=== PATIENT | male | born 1965 | race Caucasian/White ===

== ENCOUNTER → 2018-03-17 03:48 | Outpatient (CLI) | payer OTHER, SELFPAY ==
[2018-03-17 08:25] LABS: ALT 31 U/L (12-78); AST 23 U/L (15-37); Albumin 3.6 g/dL (3.4-5.0); Alkaline Phosphatase 77 U/L (46-116); Anion Gap 9.8 mmol/L (3-11); BUN 12 mg/dL (7-18); Bilirubin, Total 0.7 mg/dL (0.2-1.0); CO2 27.2 mmol/L (21.0-32.0); CREATININE 1.17 mg/dL (0.70-1.30); Calcium 8.8 mg/dL (8.5-10.1); Chloride 104 mmol/L (98-107); Cholesterol 204 mg/dL (50-200); Glucose 116 mg/dL (70-100); HDL Cholesterol 32 mg/dL (40-60); LDL CHOLESTEROL 148 mg/dL (<100); Potassium 4.4 mmol/L (3.5-5.1); Sodium 141 mmol/L (136-145); Total Protein 7.4 g/dL (6.4-8.2); Triglyceride 182 mg/dL (30-150)
== END ==
PROVIDERS: PCP Nurse Practitioner Gerontology; Visit Provider Family Medicine
DX: Z00.00 Encounter for general adult medical examination without abnormal findings (principal); E78.5 Hyperlipidemia, unspecified; F17.200 Nicotine dependence, unspecified, uncomplicated; I10 Essential (primary) hypertension
CPT/HCPCS: 36415; 80053; 80061; 83721

== ENCOUNTER 2018-05-31 14:26 | Outpatient (CLI) | payer OTHER, SELFPAY ==
--- NOTE | 2018-05-31 15:26 | DI.RAD_ITS ---
SYMPTOMS/DIAGNOSIS: LEFT HEEL PAIN, M79.672 EXAMINATION OF THE LEFT HEEL: Lateral and Artis projections of the heel were obtained. A prominent calcaneal spur is evident and there is some spurring at the insertion of the Achilles on the calcaneus. There is some soft tissue prominence over the heel without evidence of a localized mass. There is no evidence of a foreign body or gas in the soft tissues. These findings to be correlated with the patient's clinical status.
== END 2018-05-31 14:46 ==
PROVIDERS: PCP Nurse Practitioner Gerontology; Visit Provider Family Medicine
DX: M79.672 Pain in left foot (principal); M77.32 Calcaneal spur, left foot; M79.89 Other specified soft tissue disorders
CPT/HCPCS: 73650

== ENCOUNTER 2019-03-21 00:10 | Outpatient (CLI) | payer OTHER, SELFPAY ==
[2019-03-21 08:02] LABS: HCT 39.2 % (40.0-50.0); HGB 13.7 g/dL (13.5-17.5); Mean Corp. HGB Concentration 34.9 g/dL (32.0-36.0); Mean Corpuscular Hemoglobin 32.6 pg (27.0-33.0); Mean Corpuscular Volume 93.3 fL (80-95); Mean Platelet Volume 10.1 fL (8.0-11.0); Platelet Count 235 x1000/uL (130-400); RBC Distribution Width 12.5 % (11.8-14.1); White Blood Cell Count 7.46 k/cumm (4.4-10.8)
[2019-03-21 08:53] LABS: Hemoglobin A1C 6.2 % (4.5-6.2)
[2019-03-21 09:49] LABS: AST 17 U/L (15-37); Albumin 3.6 g/dL (3.4-5.0); Alkaline Phosphatase 87 U/L (46-116); Anion Gap 10.1 mmol/L (3-11); BUN 17 mg/dL (7-18); Bilirubin, Total 0.7 mg/dL (0.2-1.0); CO2 26.9 mmol/L (21.0-32.0); CREATININE 1.23 mg/dL (0.70-1.30); Calcium 9.1 mg/dL (8.5-10.1); Calculated LDL 102 mg/dL; Chloride 103 mmol/L (98-107); Cholesterol 164 mg/dL (50-200); Glucose 119 mg/dL (70-100); HDL Cholesterol 41 mg/dL (40-60); Potassium 4.7 mmol/L (3.5-5.1); Sodium 140 mmol/L (136-145); Total Protein 7.7 g/dL (6.4-8.2); Triglyceride 105 mg/dL (30-150)
[2019-03-21 09:50] LABS: ALT 29 U/L (12-78)
== END 2019-03-21 00:30 ==
PROVIDERS: PCP Family Medicine; Visit Provider Family Medicine
DX: E78.5 Hyperlipidemia, unspecified (principal); I10 Essential (primary) hypertension; Z82.49 Family history of ischemic heart disease and other diseases of the circulatory system; R73.03 Prediabetes; Z83.3 Family history of diabetes mellitus
CPT/HCPCS: 36415; 80053; 80061; 83721; 85027; 83036

== ENCOUNTER 2019-04-12 06:48 | Emergency (ER) | payer OTHER, SELFPAY ==
[2019-04-12 06:53] VITALS: BP 155/87; PULSE 74; RESP 16; TEMP 36.5; O2SAT 99
--- NOTE | 2019-04-12 07:06 | ED.GENADUL_ITS ---
Discharge Plan Disposition Patient Disposition: OTHER Condition: Good Discharge Details Chief Complaint: EyeProblem Clinical Impression: Foreign body in eye, Corneal rust ring Primary Care Provider: Renzo Sierra ED Provider: Polo Mejia [place] Meds and New Rx's Prescriptions: Continued aspirin [Adult Aspirin Regimen] 81 mg tablet,delayed release (DR/EC) 81 mg PO DAILY RF: 0 coenzyme Q10 [CoQ-10] 100 mg capsule 100 mg PO DAILY RF: 0 Atorvastatin Calcium 20 MG tablet 20 mg PO DAILY Qty: 90 RF: 3 lisinopril 10 mg tablet 10 mg PO DAILY Qty: 90 RF: 3 sildenafil [Viagra] 100 mg tablet 100 mg PO DAILY PRN (Reason: sexual activity) Qty: 30 RF: 5 Discharge Instructions Additional Instructions: They will see you at [facility] at 8 AM this morning. Referrals: Replaced By [facility] [Outside] Medical Decision Making Under slit lamp exam, patient noted to have metallic foreign body with large rust ring the right eye at about the 8 o'clock position with the iris and pupil meet. It is been present for 2 days. Case discussed with Dr. Fay, they are able to see the patient at 8 AM when the office opens. Patient discharged from ED to go directly to [facility]. HPI General Mode of arrival: ambulatory . Date/Time Provider Initiated Documentation: 04/12/19 06:59 . Limitations to Documentation: no limitations . Information obtained by: patient . HPI Narrative: Patient presents to ED with right eye pain and redness. 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 He felt something in his eye for 2 days now. He irrigated it out. He thought it would just come out but it has become more painful and red. He was unable to sleep last night. He has no visual change. He has no drainage. He presents now for evaluation. Related Data Home Medications Medication Instructions Recorded Confirmed aspirin 81 mg tablet,delayed 81 mg PO DAILY 05/30/18 04/12/19 release coenzyme Q10 100 mg capsule 100 mg PO DAILY 05/30/18 04/12/19 lisinopril 10 mg tablet 10 mg PO DAILY #90 tab-cap 02/22/19 04/12/19 sildenafil 100 mg tablet 100 mg PO DAILY PRN #30 tab 09/03/19 09/12/19 Previous Rx's Medication Instructions Recorded lisinopril 10 mg tablet 10 mg PO DAILY #90 tab-cap 02/22/19 sildenafil 100 mg tablet 100 mg PO DAILY PRN #30 tab 04/03/19 Allergies Allergy/AdvReac Type Severity Reaction Status Date / Time codeine AdvReac Intermediate Visual Unverified 04/12/19 06:55 Disturbances General Stated Complaint: EyeProblem LAMIN: 4 Review of Systems Eyes Eyes: Reports eye pain and Reports photophobia PFSH Medical History Essential hypertension (Chronic 01/05/16) Hyperlipidemia (Chronic 03/21/17) Surgical History Colonoscopy - IV Sedation (08/11/16) 4 polyps, rectum biopsy. Fragments of sessile serrated adnmoma, fragment of tubular adenoma, hyperpllastic polyp x2 tib/fib fx (~1975) Family History Mother Essential hypertension Father Essential hypertension Heart disease Neoplasm LUNG/MET TO BRAIN Sister No problems noted. Brother Diabetes Essential hypertension CHILDREN Udda-Pbwbw-Eobxjxj disease SON AGE 7 ONSET Premature DAUGHTER- Aprox. 2 hrs after Grandfather Non-Hodgkin lymphoma Grandfather Neoplasm Grandmother No problems noted. Grandmother Neoplasm Social History Smoking/Tobacco Use Status: Former Tobacco Use Alcohol Intake: never Drug use: Never Substance use type: does not use Household members: other Details: 5 current occupation: MAINTENANCE Pets and animals: Yes Pets and animals: cat(s) and dog(s) Frequency: does not exercise Helen/Zoroastrian: Mormon Seatbelt use: always Do you feel safe in your relationship?: Yes Exam Const General: cooperative and no acute distress Orientation: alert and oriented x3 HENMT Head: normocephalic and atraumatic Eyes Periorbital: periorbital findings normal Eyelids: eyelids normal Conjunctivae: conjunctival abnormality right conjunctival injection Cornea: corneas abnormal on the right foreign body metallic and with rust ring present Pupils: PERRL EOM: EOM intact bilaterally Course Vital Signs Vital signs: Vital Signs Temperature 97.7 F 04/12/19 06:53 Pulse 74 04/12/19 06:53 Respiratory Rate 16 04/12/19 06:53 Blood Pressure 155/87 H 04/12/19 06:53 Pulse Oximetry 99 04/12/19 06:53 Temperature 97.7 F 04/12/19 06:53 Temperature Source Skin 04/12/19 06:53 Pulse 74 04/12/19 06:53 Respiratory Rate 16 04/12/19 06:53 Respiratory Effort Non-Labored 04/12/19 06:53 Blood Pressure 155/87 H 04/12/19 06:53 Blood Pressure Position Sitting 04/12/19 06:53 Pulse Oximetry 99 04/12/19 06:53 Oxygen Delivery Method Room Air 04/12/19 06:53 Oxygen Flow Rate 0 04/12/19 06:53 Pain Level 5 04/12/19 06:53
== END 2019-04-12 07:25 | disposition other institution (70) ==
PROVIDERS: Emergency Provider Emergency Medicine; PCP Family Medicine
DX: T15.01XA Foreign body in cornea, right eye, initial encounter (principal); X58.XXXA Exposure to other specified factors, initial encounter; Y99.0 Civilian activity done for income or pay; I10 Essential (primary) hypertension
CPT/HCPCS: 99283

== ENCOUNTER 2019-11-05 07:15 | Outpatient (REF) | payer OTHER, SELFPAY | END 2019-11-05 07:35 | LOC: LBN 07:15 | PROVIDERS: PCP Family Medicine; Visit Provider Family Medicine | DX: R19.7 Diarrhea, unspecified (principal) | CPT/HCPCS: 87177; 87324 ==

== ENCOUNTER 2021-01-08 02:44 | Outpatient (CLI) | payer OTHER, SELFPAY ==
[2021-01-08 11:32] LABS: Hemoglobin A1C 9.1 % (<5.7)
[2021-01-08 11:46] LABS: Calculated LDL 162 mg/dL (<100); Cholesterol 223 mg/dL (<200); HDL Cholesterol 34 mg/dL (40-60); Triglyceride 139 mg/dL (<150)
== END 2021-01-08 02:45 | disposition home or self-care (01) ==
LOC: LOS 02:45
PROVIDERS: PCP Nurse Practitioner Family; Visit Provider Nurse Practitioner Family
DX: Z13.1 Encounter for screening for diabetes mellitus (principal); E78.5 Hyperlipidemia, unspecified; Z12.5 Encounter for screening for malignant neoplasm of prostate
CPT/HCPCS: 36415; 80061; 83036; 84154

== ENCOUNTER 2021-01-14 07:54 | Outpatient (CLI) | payer OTHER, SELFPAY ==
--- NOTE | 2021-01-14 14:00 | DI.RAD_ITS ---
Exam(s) XR SHOULDER RT COMPLETE 2+V EXAM: XR SHOULDER RT COMPLETE 2+V CLINICAL HISTORY: right shoulder pain. TECHNIQUE: 2D digital imaging was performed. COMPARISON: No exams were available for comparison FINDINGS: There is no evidence of fracture or dislocation. There is a 2-3 millimeter calcific density seen ant eriorly on the axial view adjacent to the greater tuberosity. There are minimal degenerative changes . No significant osseous lesions. IMPRESSION: DATA REPOSITORY: RADIATION DOSE DELIVERED:
== END 2021-01-14 07:55 | disposition home or self-care (01) ==
LOC: DIORS 01-15 07:54
PROVIDERS: PCP Nurse Practitioner Family; Referring Provider Nurse Practitioner Family; Visit Provider Student in an Organized Health Care Education/Training Program
DX: M25.511 Pain in right shoulder (principal)
CPT/HCPCS: 73030

== ENCOUNTER 2021-02-12 03:34 | Outpatient (CLI) | payer OTHER, SELFPAY ==
[2021-02-12 16:30] LABS: ALT 26 U/L (16-63); AST 17 U/L (15-37); Albumin 3.7 g/dL (3.4-5.0); Alkaline Phosphatase 83 U/L (46-116); BUN 15 mg/dL (7-18); Bilirubin, Total 0.5 mg/dL (0.2-1.0); CREATININE 1.4 mg/dL (0.70-1.30); Calcium 9.1 mg/dL (8.5-10.1); Chloride 105 mmol/L (98-107); Estimated GFR 52.62 (mL/min/1.73m2); Glucose 142 mg/dL (74-106); Potassium 3.9 mmol/L (3.5-5.1); Sodium 140 mmol/L (136-145); Total Protein 7.3 g/dL (6.4-8.2)
== END 2021-02-12 03:35 | disposition home or self-care (01) ==
LOC: LBO 03:34
PROVIDERS: PCP Nurse Practitioner Family; Visit Provider Nurse Practitioner Family
DX: I10 Essential (primary) hypertension (principal)
CPT/HCPCS: 36415; 80053

== ENCOUNTER 2022-05-28 16:49 | Outpatient (REF) | payer OTHER, SELFPAY ==
--- NOTE | 2022-05-28 14:50 | SKI_PTH ---
PATIENT: Tray Luu LOC: [facility] U#:[id number] AGE/SX: 57/M ROOM: RE05/28/[address]: Maurilio Linder DO : 1965 BED: DIS: 05/28/2022 SPEC #: [id number] RECD: 05/31/22 12:30 STATUS: JESSICA REQ #: [id number] ZOLTAN: 05/28/22 14:[address]: Maurilio Linder DEPT: Surgical Specimen RECD BY: Linda Castro ENTERED: 05/31/22 12:30 SP TYPE: SKI OTHR DR: Beto Damon, HARBOR BOAT PILOT Tissues: 1 - SKIN BIOPSY(SHAVE/PUNCH) Procedures: SKIN LEVEL 4 Comments: [id number]
== END 2022-05-28 16:50 | disposition home or self-care (01) ==
LOC: LBN 16:49
PROVIDERS: PCP Nurse Practitioner Family; Visit Provider Otolaryngology Otolaryngology/Facial Plastic Surgery
DX: L43.8 Other lichen planus (principal)
CPT/HCPCS: 88305

== ENCOUNTER 2022-10-29 01:41 | Outpatient (CLI) | payer OTHER, SELFPAY ==
[2022-10-29 10:28] LABS: CREATININE 1.3 mg/dL (0.70-1.30); Calculated LDL 148 mg/dL (<100); Cholesterol 220 mg/dL (<200); Estimated GFR 64.07 (mL/min/1.73m2); HDL Cholesterol 41 mg/dL (40-60); Triglyceride 159 mg/dL (<150)
== END 2022-10-29 01:42 | disposition home or self-care (01) ==
LOC: LOS 01:41
PROVIDERS: PCP Nurse Practitioner Family; Referring Provider Nurse Practitioner Family; Visit Provider Nurse Practitioner Family
DX: I10 Essential (primary) hypertension (principal); E78.5 Hyperlipidemia, unspecified
CPT/HCPCS: 36415; 80061; 82565; 84132

== ENCOUNTER 2025-01-02 02:40 | Outpatient (CLI) | payer OTHER, SELFPAY ==
[2025-01-02 12:27] LABS: Anion Gap 5.8 mmol/L (3-11); BUN 9 mg/dL (7-18); CO2 29.2 mmol/L (21.0-32.0); CREATININE 1.2 mg/dL (0.70-1.30); Calcium 9.1 mg/dL (8.5-10.1); Calculated LDL 79 mg/dL (<100); Chloride 103 mmol/L (98-107); Cholesterol 143 mg/dL (<200); Estimated GFR 69.66 (mL/min/1.73m2); Glucose 112 mg/dL (74-106); HDL Cholesterol 49 mg/dL (>or=40); Potassium 3.9 mmol/L (3.5-5.1); Sodium 138 mmol/L (136-145); Triglyceride 77 mg/dL (<150)
[2025-01-02 18:17] LABS: PSA, Screening 2.9 ng/mL (<=3.5)
== END 2025-01-02 02:41 | disposition home or self-care (01) ==
LOC: LOS 02:40
PROVIDERS: PCP Nurse Practitioner Family; Visit Provider Nurse Practitioner Family
DX: I10 Essential (primary) hypertension (principal); Z13.220 Encounter for screening for lipoid disorders; Z12.5 Encounter for screening for malignant neoplasm of prostate
CPT/HCPCS: 36415; 80048; 80061; 84153

== ENCOUNTER 2025-05-31 06:52 | Day surgery (SDC) | payer OTHER, SELFPAY ==
--- NOTE | 2025-05-30 17:03 | W.PM.DSUDISC ---
Date of service: 05/31/25 Discharge Plan Disposition Patient Disposition: Home Condition: Good Discharge Details Reason For Visit: Screening colonoscopy Attending Provider: Lonny King Primary Care Provider: Beto Damon Home Meds and New Rx's Prescriptions: Continued aspirin [Adult Aspirin Regimen] 81 mg tablet,delayed release (DR/EC) 81 mg PO DAILY (DME) blood-glucose meter [Advanced Glucose Meter] Misc See Rx Instructions .ROUTE .MEDSUPPLY Qty: 1 0RF Rx Instructions: Twice daily (DME) lancets [BD Ultra Fine Lancets] 33 gauge misc See Rx Instructions .ROUTE .MEDSUPPLY Qty: 100 0RF Rx Instructions: Twice daily lisinopril 10 mg tablet 10 mg PO DAILY Qty: 90 3RF (DME) Advanced Gluc Meter Test Strip Strip See Rx Instructions .ROUTE .MEDSUPPLY Qty: 100 3RF Rx Instructions: Twice daily sildenafil [Viagra] 100 mg tablet 100 mg PO DAILY PRN (Reason: sexual activity) Qty: 30 5RF Rx Instructions: administer 30 minutes to 4 hours before activity semaglutide 2 mg/dose (8 mg/3 mL) pen injector 2 mg subcut QWEEK Qty: 9 3RF atorvastatin 40 mg tablet 40 mg PO QHS Qty: 90 3RF Discharge Instructions Instructions: Colon polyps Additional Instructions: Tray was good meeting you today. I hope you are comfortable through the procedure. I did find, removed a total of 6 polyps today. All of these are quite small, none of them have any features that are particularly worrisome. I will send these all to the pathologist for them to review. Once I know the nature of the polyps, the office will be in touch with recommendations for your next colonoscopy. If you need anything or have any questions, please do not hesitate to call. 1. If tolerated, consume a soft, low fiber diet for 1-2 days. [address] Do not drive, drink alcohol, operate machinery, make critical decisions, or do activities that require coordination or balance for 24 hours. 3. Because air was put into your colon during the procedure, expelling air from your rectum (passing gas or farting) is normal. 4. You may not have a bowel movement for 1-3 days because of the colonoscopy prep. This is normal. 5. Go directly to the emergency room if you notice any of the following: Develop chills (warm to touch), or if you have a thermometer and your temperature is above 101 Difficulty breathing or difficultly swallowing Persistent vomiting Severe abdominal pain, other than gas cramps Severe chest pain Black, tarry stools Any bleeding – exceeding one tablespoon 6. Call your physician if the site where your intravenous was started becomes red, swollen, painful, and warm to touch. 7. Your physician has reviewed your pre-procedure medications. Please continue to take those medications as previously ordered. You will be given specific information/education regarding any changes to your medications before leaving. Stand Alone Forms: Anesthesia Discharge InstTimur Silva (DSU) Activity:: Activity as Tolerated Diet:: As Tolerated Discharge Orders Discharge Orders: Discharge Order (Routine); Ordered 05/30/25 Ordered By: Lonny King DS: Diagnosis Discharge Diagnosis (1) Encounter for screening colonoscopy: Status: Acute Asessment and Plan: Follow-up on polypectomy results
--- NOTE | 2025-05-30 17:04 | W.COLOREPORT ---
Date of service: 05/31/25 Time of Service: 08:48 Colonoscopy Report Date of procedure: 05/31/25 Pre-op diagnosis general: Screening colonoscopy Post-op diagnosis procedure note: other (Colon polyps) Procedure: Colonoscopy with polypectomy Surgeon: Lonny King Anesthesia Type: General:No Airway Estimated blood loss (mL): 10 Pathology: other (0.25 cm flat rectal polyps x 2 (single specimen, 0.25 cm flat polyp at 75 cm, 0.25 cm flat polyps x 2 at 40 cm (single specimen) 0.25 cm flat polyp at 20 cm) Complications: None Disposition: same day Indications: Tray is a 60-year-old male with a history of adenomatous polyps who needs his next screening colonoscopy Prep: Miralax/Dulcolax Procedure Start Time: 08:22 Procedure End Time: 08:38 Retraction Time: 9 Findings: 0.25 cm flat rectal polyps x 2 (single specimen, 0.25 cm flat polyp at 75 cm, 0.25 cm flat polyps x 2 at 40 cm (single specimen) 0.25 cm flat polyp at 20 cm Procedure Description: After the induction of anesthesia, and with the patient in left lateral decubitus position, I began by performing an external anorectal exam. Perineum and skin were normal, as was the anal verge. There was no evidence of external hemorrhoids. Next, I performed a digital rectal exam. I did not appreciate any abnormal findings. Next, I advanced a colonoscope into the rectal vault. There were 2 flat polyps in the rectum. Each of these is about 0.25 cm and flat. Narrowband imaging was used to assist with the analysis of these. They were removed with cold forceps with minimal bleeding. Using irrigation, I then advanced the colonoscope beyond the rectal folds and into the sigmoid colon before advancing towards the cecum. The scope was noted to be in the cecum by identification of the ileocecal valve and appendiceal orifice. I then began withdrawing the colonoscope using repeated irrigation as necessary for full evaluation of the colonic mucosa. Around 75 cm from the anal verge I identified a 0.25 cm polyp. It appeared flat in character. I was able to remove this with a cold forcep polypectomy. I examined the site, and there was minimal bleeding. Once this was completed, I continued to withdraw the scope and examine the remainder of the colonic mucosa. At 40 cm past the anal verge were 2 more polyps. These were just a few millimeters away from 1 another. Each of these polyps was flat. These were both removed with cold forceps and sent as a single specimen. There was minimal bleeding from the sites. Another 0.25 cm flat polyp was found at 20 cm past the anus, and this was also removed with cold forceps without incident. Once the scope was withdrawn to the level of the rectum, great care was taken to examine portions of the rectal folds. Finally, the scope was withdrawn and the patient was brought to the same-day surgery recovery unit as the anesthetic wore off. The findings and instructions were shared with the patient prior to discharge.
[2025-05-31 07:11] VITALS: BP 136/95; PULSE 74; RESP 16; TEMP 36.8; O2SAT 99
[2025-05-31] MEDS: Lactated Ringers 1,000 ML 80 ML IV (07:21)
--- NOTE | 2025-05-31 08:07 | W.ANESPRE ---
General Info Date of Service Date Performed: 05/31/25 Height: 5 ft 10 in Weight: 98.5 kg Body Mass Index (BMI): 31.1 Surgical Procedure: Operation Date: 05/31/25 08:20 Proposed Procedure Side Surgeon p Adin King MD Meds Allergies and Home Medications Allergies Allergy/AdvReac Type Severity Reaction Status Date / Time codeine AdvReac Intermediate Visual Verified 05/31/25 07:14 Disturbances Home Medication Medication Instructions Recorded aspirin 81 mg tablet,delayed 81 mg PO DAILY 05/30/18 release (Adult Aspirin Regimen) blood-glucose meter (Advanced #1 ea 01/23/21 Glucose Meter) lancets 33 gauge (BD Ultra Fine #100 ea 01/23/21 Lancets) blood sugar diagnostic (Advanced #100 ea 07/28/22 Glucose Meter Test Strips) sildenafil 100 mg tablet (Viagra) 100 mg PO DAILY PRN sexual 04/12/24 activity #30 tabs atorvastatin 40 mg tablet 40 mg PO QHS #90 tabs 12/10/24 semaglutide 2 mg/dose (8 mg/3 mL) 2 mg (0.75 mL) subcut QWEEK #9 mL 12/10/24 subcutaneous pen injector lisinopril 10 mg tablet 10 mg PO DAILY #90 tab-caps 12/17/24 Current Visit Medications: Current Medications Generic Name Dose Route Start Last Admin Trade Name Freq PRN Reason Stop Dose Admin Ringer's Solution 1,000 mls @ 80 mls/hr 05/31/25 06:00 05/31/25 07:21 IV 05/31/25 23:59 80 mls/hr INFUSION LUIS Administration IV Miscellaneous Supplies 1 each 05/31/25 06:00 Iv Access IV 05/31/25 23:59 DIRECTED LUIS Sodium Chloride 0 ml 05/31/25 06:00 Normal Saline Flush 10 Ml Syr IV 05/31/25 23:59 PRN PRN Sodium Chloride 0 ml 05/31/25 06:00 Normal Saline 10 Ml Vial IJ 05/31/25 23:59 DIRECTED PRN Sterile Water 0 ml 05/31/25 06:00 Water,Injection,Sterile 10 Ml Vial IJ 05/31/25 23:59 DIRECTED PRN PFSH Active Problems Active Problems: Problem Status Onset Code Encounter for screening colonoscopy Acute Z12.11 Peyronie disease Acute N48.6 Skin lesion Acute L98.9 Skin tags, multiple acquired Acute L91.8 Diabetes mellitus Chronic E11.9 Umbilical hernia Acute K42.9 Hyperlipidemia Chronic 03/21/17 E78.5 Essential hypertension Chronic 01/05/16 I10 Tubular adenoma of colon Acute 08/11/16 D12.6 Smoker Acute F17.200 Sessile colonic polyp Acute 08/11/16 K63.5 Overweight Acute E66.3 Osteoarthritis of thoracic spine Acute 07/29/17 M47.814 Family history of premature CAD Acute 03/06/18 Z82.49 Family history of diabetes mellitus Acute 03/20/18 Z83.3 Chronic thoracic back pain Acute 07/11/17 M54.6, G89.29 Surgical History Surgical History tib/fib fx (~1975) Colonoscopy - IV Sedation (08/11/16) 4 polyps, rectum biopsy. Fragments of sessile serrated adnmoma, fragment of tubular adenoma, hyperpllastic polyp x2 Tobacco Smoking/Tobacco Use Status: Former Tobacco Use Passive smoking exposure: Yes Alcohol Alcohol Intake: current Alcohol intake frequency: a few times a week Substance Use Substance use: Never Substance use type: does not use Vital Signs and Lab Results Vital Signs Most Recent Vital Signs in EMR: Most Recent Vital Signs Temp Pulse Resp BP Pulse Ox 36.8 C 74 16 136/95 H 99 05/31/25 07:11 05/31/25 07:11 05/31/25 07:11 05/31/25 07:11 05/31/25 07:11 Point of Care Results Point of Care Results: Finger Stick Blood Glucose 126 05/31/25 07:10 Lab Results Complete Metabolic Panel: Hemoglobin A1c, (4.5-5.7) 5.6 % 05/03/25, 16:06 Anesthesia Assessment and Plan Anesthesia History Personal History: No History of Anesthesia Complications Family History: No Family History of Anesthesia Complications Exercise Tolerance Exercise Tolerance: Metabolic Equivalents>4 Cardiac & Pulmonary Exam Cardiac Exam: Normal S1/S2 Heart Sounds Pulmonary Exam: Clear Bilateral Breath Sounds Implantable Cardiac Device Does patient have a Pacemaker or an ICD?: No Airway Exam Known Difficult Airway: No Mallampati Class: 3 Mouth Opening: Normal (> 3cm) Thyromental Distance: Greater than 3 cm Neck Range of Motion: Full ROM Neck Circumference: Normal Teeth Condition: Removable Dentures/Plates Upper and Removable Dentures/Plates Lower ASA Classification ASA Score: ASA 2 Emergency Case?: No NPO Status NPO Status: NPO Clears >2 hours, Solids >8 hours Anesthesia Plan Resuscitation Status: Full Code Anesthesia Technique: General Anesthesia Airway Planned: Natural Airway Monitors Used: Standard Monitors and Central Line Preoperative Comments:: 60 yo for colo. Sig PMHx: HTN (lisinopril), DM (semaglutide). Appropriately NPO. Denies reflux/GERD. Former smoker, occ EtOH.
[2025-05-31 08:10] VITALS: BMI 31.1
--- NOTE | 2025-05-31 08:24 | BOWEL_PTH ---
PATIENT: Tray Luu LOC: [facility] U#:[id number] AGE/SX: 60/M ROOM: RE05/31/[address]: Lonny King MD : 1965 BED: DIS: 05/31/2025 SPEC #: [id number] RECD: 05/31/25 12:44 STATUS: JESSICA RE #: [id number] ZOLTAN: 05/31/25 08:[address]: Lonny King DEPT: Surgical Specimen RECD BY: Linda Castro ENTERED: 05/31/25 12:45 SP TYPE: Bowel OTHR DR: Beto Damon, ENTRY LEVEL MANAGER Tissues: 1 - BIOPSY BOWEL 2 - BIOPSY BOWEL 3 - BIOPSY BOWEL 4 - BIOPSY BOWEL Procedures: GROSS AND MICRO LEVEL 4 Comments: [id number]
[2025-05-31 08:42] VITALS: PULSE 83; RESP 16; TEMP 36; O2SAT 98
[2025-05-31 09:05] VITALS: BP 124/94; PULSE 65; RESP 16; TEMP 36.3; O2SAT 97
--- NOTE | 2025-05-31 09:47 | W.ANESPOSTOP ---
Postoperative Evaluation Date, Time and Location Date Performed: 05/31/25 Time Performed: 09:05 Patient Location: Day Surgery Unit Vital Signs Most Recent Imported Vital Signs: Most Recent Vital Signs Temp Pulse Resp BP Pulse Ox 36.3 C L 65 16 124/94 H 97 05/31/25 09:05 05/31/25 09:05 05/31/25 09:05 05/31/25 09:05 05/31/25 09:05 Pain Score Most Recent Pain Score: Most Recent Pain Score Pain Level 0 05/31/25 09:05 Assessment Mental Status: Awake (Alert & Oriented to Patient Baseline) Airway and Respiratory Function: Patent airway with normal (patient baseline) respiratory exam Cardiovascular Function: Hemodynamically Stable Hydration Status: Adequately Hydrated Nausea & Vomiting: No Nausea or Vomiting Pain: Pt. Denies Any Pain Peripheral Nerve Block: Patient did not receive a nerve block
== END 2025-05-31 09:15 | disposition home or self-care (01) ==
PROVIDERS: PCP Nurse Practitioner Family; Visit Provider Surgery
PROC: 0DJD8ZZ Inspection of Lower Intestinal Tract, Via Natural or Artificial Opening Endoscopic (ICD-10-PCS; CPT 45378; principal; 2025-05-31 08:15)
DX: Z12.11 Encounter for screening for malignant neoplasm of colon (principal); K62.1 Rectal polyp; K62.0 Anal polyp
CPT/HCPCS: 45380; 88305; J2003; J2704